=== PATIENT | male | born 1980 | race Hispanic/Latino ===

== ENCOUNTER 2018-08-08 08:25 | Inpatient (IN) | payer SELFPAY ==
[~2018-08-08] VITALS: Ht 167.6 cm; Wt 88.5 kg
[2018-08-08] MEDS ORDERED: MORPHINE SULFATE 4 MG/1ML SYG ONE ×2 (08:51→14:14)
[2018-08-08] MEDS ORDERED: ONDANSETRON HCL 4 MG/2 ML VIAL ONE ×2 (10:53→14:28)
[2018-08-08] MEDS ORDERED: KETOROLAC TROMETHAMINE 15MG/ML ONE (10:53)
[2018-08-08 11:12] LABS: BASOPHILS % (AUTO) 0.9 % (0.0-5.0); EOSINOPHILS % (AUTO) 1.1 % (0.0-8.0); HEMATOCRIT 43.9 % (42-54); LYMPHOCYTES % (AUTO) 21.1 % (21.0-51.0); MEAN CORPUSCULAR HEMOGLOBIN 29.3 pg (27.0-33.0); MEAN CORPUSCULAR HGB CONC 34.8 g/dL (32.0-36.0); MEAN CORPUSCULAR VOLUME 84.3 fL (79-99); MONOCYTES % (AUTO) 8.9 % (3.0-13.0); NUCLEATED RED BLOOD CELLS 0.1 % (0.0-0.19); PLATELET COUNT (AUTO) 223 K/uL (130-400); RED BLOOD CELL COUNT(AUTO) 5.21 MIL/uL (4.50-6.20); RED CELL DISTRIBUTION WIDTH 13.4 % (11.0-15.5); WHITE BLOOD COUNT (AUTO) 9.7 K/uL (4.8-10.8)
[2018-08-08 11:19] LABS: CREATININE 0.8 mg/dL (0.5-1.5); POTASSIUM 3.9 mmol/L (3.5-5.1)
[2018-08-08 11:23] LABS: ALBUMIN 3.9 g/dL (3.5-5.0); BILIRUBIN,TOTAL 0.4 mg/dL (0.2-1.0)
[2018-08-08 11:39] LABS: INR 0.98 (0.85-1.15); PARTIAL THROMBOPLASTIN TIME 28.3 SEC (26.3-35.5); PROTHROMBIN TIME 10.3 SEC (9.6-11.6)
[2018-08-08] MEDS ORDERED: ETOMIDATE 2 MG/ML 10 ML VIAL ONE (14:28)
[2018-08-08] MEDS ORDERED: MIDAZOLAM HCL 5 MG/ML 2ML VIAL IV ONE (14:28)
[2018-08-08] MEDS ORDERED: ACETAMINOPHEN 325 MG TAB PO PRN ×2 (15:00)
[2018-08-08] MEDS ORDERED: ONDANSETRON HCL 4 MG/2 ML VIAL IV PRN (15:00)
[2018-08-08] MEDS ORDERED: HYDROCODONE/ACETAMINOPHEN 10/325 MG TAB ONE (16:04)
[2018-08-08 16:55] VITALS: BP 119/97
[2018-08-08] MEDS: MORPHINE SULFATE 4 MG/1ML SYG IV PRN (19:50)
[2018-08-08] MEDS: FAMOTIDINE 20MG TAB 20 MG TAB PO SCH (19:50)
[2018-08-08 20:04] VITALS: BP 127/69
[2018-08-08] MEDS: HYDROCODONE/ACETAMINOPHEN 5/325 MG TAB PO PRN (21:53)
[2018-08-08 23:41] VITALS: BP 118/67
[2018-08-09] VITALS (24 sets, daily range): BP systolic 99–140; BP diastolic 54–87
[2018-08-09] MEDS: MORPHINE SULFATE 4 MG/1ML SYG IV PRN ×3 (02:05→22:41)
[2018-08-09] MEDS: KETOROLAC TROMETHAMINE 15MG/ML IV PRN ×3 (05:22→19:53)
[2018-08-09] MEDS: FAMOTIDINE 20MG TAB 20 MG TAB PO SCH ×2 (08:01→19:53)
[2018-08-09] MEDS ORDERED: LACTATED RINGERS 1000ML 0 ML IV ONE (13:30)
[2018-08-09] MEDS ORDERED: CEFAZOLIN SODIUM 1 GM VIAL ONE ×3 (13:30→19:44)
[2018-08-09] MEDS ORDERED: LACTATED RINGERS 1000ML 1,000 ML IV ONE (13:32)
[2018-08-09] MEDS ORDERED: PROPOFOL 10 MG/ML 20ML VIAL IV ONE (13:47)
[2018-08-09] MEDS ORDERED: LIDOCAINE PF 2% 5ML ABBOJECT ONE (13:47)
[2018-08-09] MEDS ORDERED: DEXAMETHASONE SOD PHOSPHATE 10MG/ML 1ML VIAL ONE (13:47)
[2018-08-09] MEDS ORDERED: MIDAZOLAM HCL 1 MG/ML 2ML VIAL ONE (13:47)
[2018-08-09] MEDS ORDERED: FENTANYL CITRATE PF 50 MCG/1 ML 2ML VIAL ONE ×2 (13:48→14:39)
[2018-08-09] MEDS ORDERED: ONDANSETRON HCL 4 MG/2 ML VIAL ONE (13:48)
[2018-08-09] MEDS ORDERED: ROCURONIUM 10MG/1ML SYR 10 MG/ML ML ONE (13:58)
--- NOTE | 2018-08-09 14:36 | NUR ---
08:55 PER MELCHOR HORTON, PATIENT IS SCHEDULE FOR SURGERY TODAY. WILL WAIT FOR NEW ORDER AFTER SURGERY FOR PHYSICAL THERAPY EVALUATION. Addendum: 08/09/18 at 1439 by TATI GURROLA, PT PT Amended: Links added.
[2018-08-09] MEDS ORDERED: ROPIVACAINE 0.5% 5MG/ML 30ML IJ ONE (15:48)
[2018-08-09] MEDS ORDERED: MEPERIDINE-PF 25 MG/ML SYG ONE (16:55)
[2018-08-09] MEDS: HYDROCODONE/ACETAMINOPHEN 5/325 MG TAB PO PRN (18:00)
[2018-08-09] MEDS: CEFAZOLIN SODIUM 1 GM VIAL IVP SCH (22:19)
[2018-08-10 04:00] VITALS: BP 109/72
[2018-08-10] MEDS: HYDROCODONE/ACETAMINOPHEN 5/325 MG TAB PO PRN ×3 (04:12→12:16)
[2018-08-10 04:48] LABS: HEMATOCRIT 40.1 % (42-54); MEAN CORPUSCULAR HEMOGLOBIN 29.7 pg (27.0-33.0); MEAN CORPUSCULAR HGB CONC 34.9 g/dL (32.0-36.0); PLATELET COUNT (AUTO) 204 K/uL (130-400); RED BLOOD CELL COUNT(AUTO) 4.71 MIL/uL (4.50-6.20); RED CELL DISTRIBUTION WIDTH 13.3 % (11.0-15.5); WHITE BLOOD COUNT (AUTO) 13.8 K/uL (4.8-10.8)
[2018-08-10 04:52] LABS: CREATININE 0.8 mg/dL (0.5-1.5); POTASSIUM 4.1 mmol/L (3.5-5.1)
[2018-08-10] MEDS: CEFAZOLIN SODIUM 1 GM VIAL IVP SCH (06:29)
[2018-08-10 08:00] VITALS: BP 99/50
[2018-08-10] MEDS: FAMOTIDINE 20MG TAB 20 MG TAB PO SCH (08:32)
--- NOTE | 2018-08-10 12:50 | NUR ---
DISCHARGE DISCHARGE TEACHING DONE WITH PATIENT USING TEACHBACK METHOD, VERBALIZED UNDERSTANDING. NO NOTED SOB OR DISTRESS. WALKING BOOT IN PLACE, DRESSING DRY AND INTACT. NEW MEDICATION ADMINISTRATION TEACHING DONE WITH PATIENT AND FAMILY USING TEACHBACK METHOD, VERBALIZED UNDERSTANDING. PT AWARE OF NEED TO SET UP APPOINTMENT WITH DR. MATOS. CRUTCHES WITH PATIENT, VERBALIZED UNDERSTANDING OF USE. IV REMOVED, CATH TIP INTACT. PENDING TO BE TRANSFERRED OUT VIA PRIVATE VEHICLE.
--- NOTE | 2018-08-10 13:12 | NUR ---
DCP CM met with pt discussed dc plans. Pt is independent, lives at home with girlfriend. Denies any equipments/services. Pt feels safe to go back home, still drives and works, girlfriend able to assist with transportation and needs as necessary. Self pay, goes to [facility], [facility] assisting. Pt given crutches by PT. DC plan to home once stable. CM to cont to follow up. Addendum: 08/10/18 at 1314 by EDILMA MOSELEY LVN CM Amended: Links added.
== END 2018-08-10 13:40 | disposition home or self-care (01) | DRG 494 ==
LOC: EDH 08:25 → EDHIP 08:26 → UNDOADMIN 10:51 → EDHIP 10:51 → 4AH 16:23
PROVIDERS: ADMIT Internal Medicine; ATTEND Internal Medicine
PROC: 0QSK04Z Reposition Left Fibula with Internal Fixation Device, Open Approach (ICD-10-PCS; principal; 2018-08-09 14:30)
PROC: 0SSG04Z Reposition Left Ankle Joint with Internal Fixation Device, Open Approach (ICD-10-PCS; 2018-08-09 14:30)
DX: S82.892A Other fracture of left lower leg, initial encounter for closed fracture (principal); S93.02XA Subluxation of left ankle joint, initial encounter; L30.9 Dermatitis, unspecified; W01.0XXA Fall on same level from slipping, tripping and stumbling without subsequent striking against object, initial encounter; X50.1XXA Overexertion from prolonged static or awkward postures, initial encounter; Y93.89 Activity, other specified; Y92.89 Other specified places as the place of occurrence of the external cause; Y99.8 Other external cause status
CPT/HCPCS: 36415; 73600; 73610; 80048; 80053; 85025; 85027; 85610; 85730; A4218; G0378; J0690; J1100; J1885; J2001; J2175; J2250; J2270; J2405; J2704; J2795; J3010; J3490; J7120